=== PATIENT | female | born 1990 | race Caucasian/White ===

== ENCOUNTER 2019-10-18 17:08 | Emergency (ER) | payer OTHER ==
[~2019-10-18] VITALS: Ht 157.5 cm; Wt 52.2 kg
[2019-10-18] MEDS ORDERED: KETO10TA2 PO (21:20)
[2019-10-18] MEDS ORDERED: AMOX-CLAV 875-1 EACH PO (21:20)
[2019-10-18] MEDS ORDERED: ZANTAC150 MG PO (21:20)
== END 2019-10-18 21:28 | disposition home or self-care (01) ==
LOC: ER 17:08
DX: J03.90 Acute tonsillitis, unspecified (principal)